=== PATIENT | female | born 1970 | race Caucasian/White ===

== ENCOUNTER 2016-08-23 13:08 | Day surgery (SDC) | payer OTHER ==
[~2016-08-23] VITALS: Ht 172.7 cm; Wt 85.3 kg
[~2016-08-23 13:08] MED LIST: ASCO-294 PO; CETI5TAB28 PO; FAMO20T PO; Lactated Ringer's 1,000 ML IV ONE; MULT-1018 PO; Sodium Chloride LOK Flush 10 mL Syringe IV PRN; fentaNYL-PF 50 mCg/mL 2 mL Inj IVPUSH PRN
[2016-08-23 14:18] VITALS: BP 117/77; PULSE 73; RESP 16; O2SAT 100
[2016-08-23] MEDS: 0.9% Sodium Chloride 1,000 ML IV SCH ×2 (15:01→15:51)
--- NOTE | 2016-08-23 15:51 | PCM.ENDEGD ---
EGD Date of Service: August 23, 2016 Physician Xiang Grove MD Pre Procedure Diagnosis: Reflux Post Procedure Dx & Findings: Rule out esophagitis Procedure Esophagogastroduodenoscopy PROCEDURE IN DETAIL: After proper sedation, Olympus video endoscope was inserted into patient's mouth and esophagus was successfully intubated. Scope introduced esophagus. Esophagus showed normal shiny whitish mucosa consistent with squamous cell component. Z line was not intact at 40 cm from the incisors. Irregularity noted with possible edema. Biopsies obtained. Stomach further advanced to the stomach. Stomach showed normal shiny mucosa with normal appearing rugae folds without any ulcer mass erosion. Cardia fundus body antrum pylorus were all visualized. Retroflexion was done. Stomach was easily inflated and deflatable using air. Scope further events to the distal duodenum. Duodenum revealed normal villous structures with normal appearing folds without any mass ulcer erosion. Impression Possible esophagitis status post biopsy Recommendation Follow up with GI clinic with Dr. Citlali Mccann Presedation Assessment Risks and Benefits Informed consent was obtained from the patient after all risks and benefits including but not limited to drug reaction, infection, pain, bleeding, perforation, as well as alternatives were discussed. Patient monitoring Continuous pulse oximetry, cardiac monitoring, blood pressure monitoring, IV access, and oxygen at 2L per nasal cannula. Periprocedural Fentanyl: Fentanyl 75mcg Incrementally Midazolam: Midazolam 4mg Incrementally Complications There were no periprocedural complications identified. Post Procedure Plan Post Procedure Recommendations 1. Restrict activities today. 2. Resume normal activities in the morning. 3. Resume medications. 4. GERD behavioral modification: - Avoid fatty, acidic, spicy, large meals - Do not lie down after meals - Do not eat or drink anything for at least 2 1/2 hours before going to bed at night - Discontinue tobacco and alcohol - Decrease or avoid caffeine - Avoid chocolate and mints - Decrease weight - Avoid aspirin and non steroidal anti-inflammatory agents (NSAID) such as Aleve, Advil, Mobic, Naproxen, Ibuprofen, etc 5. Add proton pump inhibitor. Take 30 minutes before 1st meal of the day. 6. Patient informed of normal post procedure side effects as bloating, drowsiness, blood streaking in the stool 7. If gastric biopsy reveal H.pylori, continue with appropriate treatment 8. If small bowel biopsy reveals celiac, continue with appropriate treatment 9. Please don't hesitate to call me with any questions Xiang Grove MD August 23, 2016 15:51
[2016-08-23 15:52] VITALS: BP 119/69; PULSE 65; RESP 16; O2SAT 99
[2016-08-23 16:04] VITALS: BP 110/69; PULSE 94; RESP 14; O2SAT 100
--- NOTE | 2016-08-25 19:53 | PATH ---
SURGICAL PATHOLOGY Attending Physician:Xiang Grove M.D. CASE STATUS: Signed Out PATIENT NAME: MARCIA ETIENNE PID: [id number] : 1970 DATE COLLECTED:08/23/2016 00:00 SPECIMEN: Esophagus, Biopsy CLINICAL HISTORY: GERD 1 Z-LINE BIOPSY FINAL DIAGNOSIS: Esophageal Biopsy: Portions of columnar mucosa with no diagnostic abnormality. One minute focus of squamous mucosa with reactive atypia is present and is negative for dysplasia and malignancy. Negative for intestinal metaplasia. Negative for dysplasia and malignancy. No well-preserved squamocolumnar junctional mucosa identified for evaluation. ICD10: K20.9 GROSS DESCRIPTION: The specimen is received in one formalin filled container labeled with the patient's name, sublabeled "Z line" is of 2 portions of tissue which aggregate to 0.3 x 0.3 x 0.2 CM. The specimen is entirely submitted in one cassette. 08/24/2016 [facility] ICD-9 CODES: CPT CODES: 1: 16711 Electronically Signed Out Shira Vogel MD [facility] Pathology [facility] [address], [place] [address] Technical component performed at [facility], [address] [place] [address] Ave[address], [place], [address]
== END 2016-08-23 23:59 | disposition home or self-care (01) ==
LOC: END 13:08
PROVIDERS: ATTEND Internal Medicine
DX: K21.9 Gastro-esophageal reflux disease without esophagitis (principal)
CPT/HCPCS: 43239; G0500; J7030